=== PATIENT | female | born 1950 | race Caucasian/White ===

== ENCOUNTER → 2017-06-30 12:30 | Outpatient (CLI) | payer MEDICARE, BC ==
[2014-08-03 07:49] VITALS: BMI 20.7
[~2017-06-30 12:30] MED LIST: BAYER CHEWABLE81 MG PO; PLAVIX75 MG PO; PRAVACHOL20 MG PO; PROVENTIL HFA6.7 GM INH
== END | disposition home or self-care (01) ==
LOC: D.RT 04-14 08:00
DX: J44.9 Chronic obstructive pulmonary disease, unspecified (principal)